=== PATIENT | female | born 1960 | race African-American/Black ===

== ENCOUNTER 2016-11-21 13:34 | Emergency (ER) | payer MEDICAID ==
[~2016-11-21] VITALS: Ht 154.9 cm; Wt 97.0 kg
[~2016-11-21 13:34] MED LIST: ALBU18HF2 IH; ALBU5SOL6 IH; AMLO2.5T45 PO; ASPI-1035 PO; BECL8.7A6 INH; BISA-81 PO; CARV6.2548 PO; DIPH25CA83 PO; DOCU-150 PO; FLUT1DIS3 IH; FURO-152 PO; INSU100V3 SQ; Ranolazine PO; TRAM50TA73 PO
[2016-11-21] MEDS ORDERED: PREDNISONE 20MG TABLET PO STA (14:20)
[2016-11-21] MEDS ORDERED: IPRATROPIUM BROMIDE (0.02%) 0.5MG/2.5ML NEB HHN STA (14:20)
[2016-11-21] MEDS ORDERED: ALBUTEROL (0.083%) 2.5MG/3ML NEB HHN STA (14:20)
[2016-11-21] MEDS ORDERED: MORPHINE SULFATE 4 MG/ML CPJ (NOT FOR IM USE) IV ONE (14:30)
[2016-11-21 14:48] LABS: BASOPHILS % 1.2 % (0.0-2.0); EOSINOPHILS % 1.7 % (0.0-5.0); HEMOGLOBIN. 11.3 g/dL (12.0-16.0); LYMPHOCYTES % 22.5 % (20.0-50.0); MEAN CORPUSCULAR HEMOGLOBIN 26.9 pg (28.0-32.0); MEAN CORPUSCULAR HGB CONC 32.3 g/dL (31.0-37.0); MEAN CORPUSCULAR VOLUME 83.4 fL (81.0-99.0); MEAN PLATELET VOLUME 7.3 fl (7.4-10.4); MONOCYTES % 7.9 % (2.0-8.0); NEUTROPHILS % 66.7 % (40.0-76.0); PLATELET 357 x1000/uL (130-400); RED CELL DISTRIBUTION WIDTH 15.7 % (11.6-14.6); WHITE BLOOD COUNT 9.2 x1000/uL (4.5-11.0)
[2016-11-21 15:03] LABS: ALANINE AMINOTRANSFERASE 20 IU/L (13-61); ALBUMIN 4.1 g/dL (3.4-5.0); ANION GAP 12; CALCIUM 8.8 mg/dL (8.5-10.1); CARBON DIOXIDE 30 mEq/L (21-32); CHLORIDE 106 mEq/L (98-107); INDEX HEMOLYSI 1 (1-3); INDEX ICTERIC 1 (1-4); INDEX LIPEMIC 1 (1-3); NT PRO B-TYPE NATRIURETIC PEP 78 pg/mL (5-125); TROPONIN I < 0.02 ng/mL (0.00-0.04); UREA NITROGEN BLOOD 16 mg/dL (7-21); eGFR > 60 mL/min (>60)
[2016-11-21 15:16] LABS: PROTHROMBIN TIME 10.8 sec
[2016-11-21 15:34] VITALS: BP 144/104
== END 2016-11-21 15:45 | disposition left against medical advice (07) ==
LOC: ER 15:24
DX: J45.901 Unspecified asthma with (acute) exacerbation (principal); R07.9 Chest pain, unspecified; J44.9 Chronic obstructive pulmonary disease, unspecified; E11.9 Type 2 diabetes mellitus without complications; I11.0 Hypertensive heart disease with heart failure; I50.9 Heart failure, unspecified; Z79.82 Long term (current) use of aspirin; Z79.4 Long term (current) use of insulin; Z79.899 Other long term (current) drug therapy; Z88.6 Allergy status to analgesic agent; Z88.8 Allergy status to other drugs, medicaments and biological substances
CPT/HCPCS: 36415; 71010; 80053; 82962; 83880; 84484; 85025; 85610; 85730; 93005; 94640; 96372; 99285; J2270; J7512; J7611; Z7610

== ENCOUNTER 2017-01-14 20:30 | Emergency (ER) | payer MEDICAID ==
[~2017-01-14] VITALS: Ht 170.2 cm; Wt 100.0 kg
[~2017-01-14 20:30] MED LIST changes: -ASPI-1035 PO; +ASPI-1159 PO
[2017-01-14 21:17] LABS: HEMATOCRIT. 31.7 % (36.0-48.0); HEMOGLOBIN. 10.4 g/dL (12.0-16.0); MEAN CORPUSCULAR HEMOGLOBIN 27.2 pg (28.0-32.0); MEAN PLATELET VOLUME 7.4 fl (7.4-10.4); PLATELET 308 x1000/uL (130-400); RED BLOOD CELL COUNT 3.82 mill/uL (4.2-5.4); RED CELL DISTRIBUTION WIDTH 15.3 % (11.6-14.6)
[2017-01-14 21:22] LABS: PROTHROMBIN TIME 10.9 sec
[2017-01-14 21:24] LABS: CARBON DIOXIDE 32 mEq/L (21-32); CHLORIDE 106 mEq/L (98-107)
[2017-01-14 21:30] LABS: TROPONIN I < 0.02 ng/mL (0.00-0.04)
[2017-01-14 21:40] LABS: PLATELET ESTIMATE NORMAL
[2017-01-14] MEDS ORDERED: ACETAMINOPHEN WITH CODEINE 300/30MG TABLET PO ONE (23:45)
[2017-01-15 01:59] VITALS: BP 112/66
== END 2017-01-15 02:03 | disposition home or self-care (01) ==
LOC: ER 20:40
DX: R07.2 Precordial pain (principal); R55 Syncope and collapse; J44.9 Chronic obstructive pulmonary disease, unspecified; I50.9 Heart failure, unspecified; I11.0 Hypertensive heart disease with heart failure; E11.9 Type 2 diabetes mellitus without complications; Z95.0 Presence of cardiac pacemaker; Z79.82 Long term (current) use of aspirin; Z79.4 Long term (current) use of insulin; Z88.6 Allergy status to analgesic agent; Z79.899 Other long term (current) drug therapy
CPT/HCPCS: 36415; 71010; 80053; 83880; 84484; 85025; 85610; 93005; 99285; Z7610

== ENCOUNTER 2017-04-13 21:47 | Inpatient (IN) | payer MEDICAID ==
[~2017-04-13] VITALS: Ht 162.6 cm; Wt 80.7 kg
[2017-04-13] MEDS ORDERED: NITROGLYCERIN OINT 1GM/INCH UDPKT TD ONE (22:30)
[2017-04-13] MEDS ORDERED: ASPIRIN 81MG TABLET PO ONE (22:30)
[2017-04-13] MEDS ORDERED: HYDROCODONE/ACETAMINOPHEN 10/325MG TABLET PO ONE (22:45)
[2017-04-13 23:11] LABS: BASOPHILS % 1.1 % (0.0-2.0); EOSINOPHILS % 3.5 % (0.0-5.0); HEMOGLOBIN. 10.5 g/dL (12.0-16.0); LYMPHOCYTES % 27.7 % (20.0-50.0); MEAN CORPUSCULAR HEMOGLOBIN 26.6 pg (28.0-32.0); MEAN CORPUSCULAR VOLUME 83.6 fL (81.0-99.0); MEAN PLATELET VOLUME 7.6 fl (7.4-10.4); NEUTROPHILS % 59.7 % (40.0-76.0); PLATELET 324 x1000/uL (130-400); RED BLOOD CELL COUNT 3.94 mill/uL (4.2-5.4); RED CELL DISTRIBUTION WIDTH 15.3 % (11.6-14.6)
[2017-04-13 23:25] LABS: D-DIMER 0.65 mg/L FEU (<0.50); INR 1.1; PROTHROMBIN TIME 11.2 sec (9.4-11.6)
[2017-04-13 23:29] LABS: CARBON DIOXIDE 32 mEq/L (21-32); CHLORIDE 104 mEq/L (98-107); ETHANOL BLOOD < 10 mg/dL; TROPONIN I < 0.02 ng/mL (0.00-0.04)
[2017-04-13] MEDS ORDERED: ONDANSETRON HCL 4MG/2ML VIAL IV PRN (23:45)
[2017-04-13] MEDS ORDERED: DOCUSATE SODIUM 100MG CAPSULE PO PRN (23:45)
[2017-04-13] MEDS ORDERED: NA PHOS,M-B/NA PHOS,DI-BA ENEMA 118ML PR PRN (23:45)
[2017-04-13] MEDS ORDERED: ACETAMINOPHEN 650MG/20.3ML UDC GT PRN (23:45)
[2017-04-13] MEDS ORDERED: MAGNESIUM/ALUMINUM HYDROXIDE/SIMETHICONE 30ML UDC PO PRN (23:45)
[2017-04-13] MEDS ORDERED: ACETAMINOPHEN 325MG TABLET PO PRN (23:45)
[2017-04-13] MEDS ORDERED: GUAIFENESIN 200MG/10ML SUGAR FREE UDC PO PRN (23:45)
[2017-04-13] MEDS ORDERED: HYDROCODONE/ACETAMINOPHEN 5/325MG TABLET PO PRN (23:45)
[2017-04-13] MEDS ORDERED: IPRATROPIUM/ALBUTEROL 0.5-3(2.5)MG/3ML NEB INH PRN (23:45)
[2017-04-13] MEDS ORDERED: ACETAMINOPHEN 650MG SUPP PR PRN (23:45)
[2017-04-13] MEDS ORDERED: CLONIDINE 0.1MG TABLET PO PRN (23:45)
[2017-04-14] MEDS ORDERED: MORPHINE SULFATE 2 MG/ML CPJ (NOT FOR IM USE) IV STA ×2 (00:19→04:31)
[2017-04-14] MEDS: DIPHENHYDRAMINE 50MG/ML VIAL IV PRN ×5 (02:38→20:24)
[2017-04-14 05:56] LABS: EOSINOPHILS % 4.1 % (0.0-5.0); HEMATOCRIT. 31.1 % (36.0-48.0); LYMPHOCYTES % 37.2 % (20.0-50.0); MEAN CORPUSCULAR HEMOGLOBIN 27.2 pg (28.0-32.0); MEAN CORPUSCULAR VOLUME 84.7 fL (81.0-99.0); MEAN PLATELET VOLUME 7.7 fl (7.4-10.4); MONOCYTES % 8.9 % (2.0-8.0); NEUTROPHILS % 48.8 % (40.0-76.0); PLATELET 307 x1000/uL (130-400); RED BLOOD CELL COUNT 3.68 mill/uL (4.2-5.4); RED CELL DISTRIBUTION WIDTH 15.6 % (11.6-14.6)
[2017-04-14 06:26] LABS: CARBON DIOXIDE 31 mEq/L (21-32); CHLORIDE 105 mEq/L (98-107); HDL CHOLESTEROL 46 mg/dL (40-59); TROPONIN I < 0.02 ng/mL (0.00-0.04)
[2017-04-14 06:37] LABS: CREATINE KINASE 75 IU/L (26-192); LDL CHOLESTEROL 80 mg/dL (5-100)
[2017-04-14 10:15] VITALS: BP 112/72
[2017-04-14] MEDS: HYDROMORPHONE HCL/PF 2MG/ML CPJ IV PRN ×3 (10:39→22:01)
[2017-04-14] MEDS: SODIUM CHLORIDE 0.9% INJ 3ML FLUSH IVF SCH ×2 (10:41→20:59)
[2017-04-14 10:58] LABS: CLARITY URINE CLEAR (CLEAR); COLOR URINE YELLOW (YELLOW); GLUCOSE URINE NEGATIVE (NEGATIVE); KETONES URINE NEGATIVE (NEGATIVE); LEUKOCYTE ESTERASE URINE NEGATIVE (NEGATIVE); NITRITE URINE NEGATIVE (NEGATIVE); OCCULT BLOOD URINE NEGATIVE (NEGATIVE); PH URINE 5.5 (4.5-8.0); PROTEIN URINE NEGATIVE (NEGATIVE); SPECIFIC GRAVITY URINE 1.036 (1.005-1.030); UROBILINOGEN URINE 0.2 E.U./dL (0.2-1.0)
[2017-04-14 11:26] LABS: *AMPHETAMINES SCREEN URINE NEGATIVE (NEGATIVE); *BARBITURATES SCREEN URINE NEGATIVE (NEGATIVE); *BENZODIAZEPINES SCREEN URINE NEGATIVE (NEGATIVE); *COCAINE SCREEN URINE NEGATIVE (NEGATIVE); CANNABINOID URINE SCREEN NEGATIVE (NEGATIVE); METHADONE URINE SCREEN NEGATIVE (NEGATIVE); OPIATES URINE SCREEN PRESUMTIVE POSITIVE (NEGATIVE); PHENCYCLIDINE URINE SCREEN NEGATIVE (NEGATIVE)
[2017-04-14 12:00] VITALS: BP 127/75
[2017-04-14 14:52] LABS: CREATINE KINASE 76 IU/L (26-192); TROPONIN I < 0.02 ng/mL (0.00-0.04)
[2017-04-14 17:30] VITALS: BP 121/86
[2017-04-14 20:00] VITALS: BP 125/78
[2017-04-14] MEDS ORDERED: DEXTROSE 50% WATER 50ML SYRINGE IV PRN (20:00)
[2017-04-14] MEDS: BLOOD SUGAR DIAGNOSTIC STRIP TEST SCH (20:20)
[2017-04-14] MEDS: INSULIN LISPRO 100 UNITS/ML SUBCUT SCH (20:20)
[2017-04-14] MEDS: GUAIFENESIN/CODEINE 100-10MG/5ML UDC PO PRN (20:57)
[2017-04-15] VITALS: BP 126/88
[2017-04-15] MEDS ORDERED: ZOLPIDEM TARTRATE 5MG TABLET PO PRN (00:15)
[2017-04-15 04:00] VITALS: BP 133/83
[2017-04-15] MEDS: SODIUM CHLORIDE 0.9% INJ 3ML FLUSH IVF SCH ×2 (05:09→08:11)
[2017-04-15] MEDS: HYDROMORPHONE HCL/PF 2MG/ML CPJ IV PRN ×2 (05:09→11:57)
[2017-04-15] MEDS: DIPHENHYDRAMINE 50MG/ML VIAL IV PRN ×2 (05:09→12:36)
[2017-04-15] MEDS: BLOOD SUGAR DIAGNOSTIC STRIP TEST SCH ×3 (07:24→17:25)
[2017-04-15] MEDS: INSULIN LISPRO 100 UNITS/ML SUBCUT SCH ×3 (07:24→17:25)
[2017-04-15 08:00] VITALS: BP 122/74
[2017-04-15] MEDS: GUAIFENESIN/CODEINE 100-10MG/5ML UDC PO PRN (08:11)
[2017-04-15 12:00] VITALS: BP 133/83
[2017-04-15 13:51] VITALS: BP 133/83
[2017-04-15 16:00] VITALS: BP 100/65
== END 2017-04-15 17:45 | disposition home or self-care (01) | DRG 201 ==
LOC: ER 21:59 → 7WST 23:06 → ENRESERV 04-14 09:19
PROVIDERS: ADMIT Family Medicine; ATTEND Family Medicine
PROC: 4B02XTZ Measurement of Cardiac Defibrillator, External Approach (ICD-10-PCS; principal; 2017-04-13)
DX: I47.2 Ventricular tachycardia (principal); I50.43 Acute on chronic combined systolic (congestive) and diastolic (congestive) heart failure; D64.9 Anemia, unspecified; E11.9 Type 2 diabetes mellitus without complications; F32.9 Major depressive disorder, single episode, unspecified; J44.9 Chronic obstructive pulmonary disease, unspecified; I11.0 Hypertensive heart disease with heart failure; E78.5 Hyperlipidemia, unspecified; I45.81 Long QT syndrome; E78.00 Pure hypercholesterolemia, unspecified; F41.9 Anxiety disorder, unspecified; J32.9 Chronic sinusitis, unspecified; K59.00 Constipation, unspecified; M19.90 Unspecified osteoarthritis, unspecified site; Z79.4 Long term (current) use of insulin; Z82.49 Family history of ischemic heart disease and other diseases of the circulatory system; Z87.891 Personal history of nicotine dependence; Z95.810 Presence of automatic (implantable) cardiac defibrillator; Z88.8 Allergy status to other drugs, medicaments and biological substances
CPT/HCPCS: 36415; 71010; 80053; 80061; 80305; 81003; 82550; 82962; 83690; 83735; 83880; 84484; 85025; 85379; 85610; 85730; 93005; 96374; 96375; 96376; 99285; C1893; G0482; J1170; J1200; J2270

== ENCOUNTER 2017-05-07 13:37 | Inpatient (IN) | payer MEDICAID ==
[~2017-05-07] VITALS: Ht 154.9 cm; Wt 95.3 kg
[2017-05-07] MEDS ORDERED: ASPIRIN 81MG TABLET PO ONE (14:00)
[2017-05-07] MEDS ORDERED: IOHEXOL-350 100 ML BOTTLE ONE (14:21)
[2017-05-07] MEDS ORDERED: SODIUM CHLORIDE 0.9% 10ML VIAL ONE (14:21)
[2017-05-07 14:22] LABS: BASOPHILS % 1.3 % (0.0-2.0); EOSINOPHILS % 2.6 % (0.0-5.0); HEMATOCRIT. 32.4 % (36.0-48.0); HEMOGLOBIN. 10.6 g/dL (12.0-16.0); LYMPHOCYTES % 22.1 % (20.0-50.0); MEAN CORPUSCULAR VOLUME 82.5 fL (81.0-99.0); MEAN PLATELET VOLUME 7.4 fl (7.4-10.4); MONOCYTES % 6.9 % (2.0-8.0); NEUTROPHILS % 67.1 % (40.0-76.0); PLATELET 356 x1000/uL (130-400); RED BLOOD CELL COUNT 3.93 mill/uL (4.2-5.4)
[2017-05-07 14:27] LABS: INR 1.1; PROTHROMBIN TIME 11.6 sec (9.4-11.6)
[2017-05-07 14:37] LABS: CARBON DIOXIDE 28 mEq/L (21-32); CHLORIDE 108 mEq/L (98-107); TROPONIN I < 0.02 ng/mL (0.00-0.04)
[2017-05-07] MEDS ORDERED: IPRATROPIUM BROMIDE (0.02%) 0.5MG/2.5ML NEB HHN STA (15:28)
[2017-05-07] MEDS ORDERED: ALBUTEROL (0.083%) 2.5MG/3ML NEB HHN STA (15:28)
[2017-05-07] MEDS ORDERED: KETOROLAC 15MG/ML VIAL IV ONE (17:00)
[2017-05-07 20:00] VITALS: BP 136/95
[2017-05-07 20:10] VITALS: BP 136/95
[2017-05-07] MEDS ORDERED: AMLO5TAB88 PO (21:08)
[2017-05-07] MEDS ORDERED: B50 PO (21:08)
[2017-05-07] MEDS ORDERED: ATOR-2 PO (21:12)
[2017-05-07] MEDS ORDERED: METF500T4 PO (21:12)
[2017-05-07] MEDS ORDERED: NITR0.4T49 PO (21:12)
[2017-05-07] MEDS ORDERED: IPRATROPIUM/ALBUTEROL 0.5-3(2.5)MG/3ML NEB INH PRN (23:00)
[2017-05-07] MEDS ORDERED: CLONIDINE 0.1MG TABLET PO PRN (23:00)
[2017-05-07] MEDS ORDERED: GUAIFENESIN 200MG/10ML SUGAR FREE UDC PO PRN (23:00)
[2017-05-07] MEDS ORDERED: DEXTROSE 50% WATER 50ML SYRINGE IV PRN (23:00)
[2017-05-07] MEDS ORDERED: ACETAMINOPHEN 325MG TABLET PO PRN (23:00)
[2017-05-07] MEDS ORDERED: MAGNESIUM/ALUMINUM HYDROXIDE/SIMETHICONE 30ML UDC PO PRN (23:00)
[2017-05-08] VITALS: BP 117/78
[2017-05-08] MEDS: IPRATROPIUM/ALBUTEROL 0.5-3(2.5)MG/3ML NEB HHN SCH ×6 (04:00→20:40)
[2017-05-08] MEDS: MORPHINE SULFATE 4 MG/ML CPJ (NOT FOR IM USE) IV PRN ×3 (05:38→17:32)
[2017-05-08] MEDS: BLOOD SUGAR DIAGNOSTIC STRIP TEST SCH ×4 (05:38→20:58)
[2017-05-08] MEDS: SODIUM CHLORIDE 0.9% INJ 3ML FLUSH IVF SCH ×3 (05:38→21:01)
[2017-05-08] MEDS: INSULIN LISPRO 100 UNITS/ML SUBCUT SCH ×4 (07:17→21:00)
[2017-05-08 08:00] VITALS: BP 136/82
[2017-05-08] MEDS: ASPIRIN 81MG EC TABLET PO SCH (08:25)
[2017-05-08] MEDS: METFORMIN HCL 500MG TABLET PO SCH ×2 (08:25→17:31)
[2017-05-08] MEDS: FUROSEMIDE 20MG TABLET PO SCH ×2 (08:25→17:31)
[2017-05-08] MEDS: CARVEDILOL 6.25 MG TABLET PO SCH ×2 (08:28→21:01)
[2017-05-08] MEDS: AMLODIPINE 5MG TABLET PO SCH (08:29)
[2017-05-08] MEDS: ONDANSETRON HCL 4MG/2ML VIAL IV PRN (08:35)
[2017-05-08 12:00] VITALS: BP 129/83
[2017-05-08] MEDS: DIPHENHYDRAMINE 50MG/ML VIAL IV PRN (15:56)
[2017-05-08 16:00] VITALS: BP 115/77
[2017-05-08 20:00] VITALS: BP 131/86
[2017-05-08] MEDS ORDERED: GUAIFENESIN-DM 200MG-20MG/10ML UDC PO PRN (22:30)
[2017-05-09] VITALS: BP 131/86
[2017-05-09] MEDS: MORPHINE SULFATE 4 MG/ML CPJ (NOT FOR IM USE) IV PRN ×4 (00:33→21:17)
[2017-05-09] MEDS: DIPHENHYDRAMINE 50MG/ML VIAL IV PRN ×3 (01:55→21:14)
[2017-05-09 04:00] VITALS: BP_SYST 108; BP_SYST 112; BP_SYST 134; BP_DIAS 72; BP_DIAS 75; BP_DIAS 86
[2017-05-09] MEDS: IPRATROPIUM/ALBUTEROL 0.5-3(2.5)MG/3ML NEB HHN SCH ×5 (04:00→20:35)
[2017-05-09] MEDS: SODIUM CHLORIDE 0.9% INJ 3ML FLUSH IVF SCH ×3 (06:05→21:15)
[2017-05-09] MEDS: BLOOD SUGAR DIAGNOSTIC STRIP TEST SCH ×4 (06:06→21:14)
[2017-05-09 08:00] VITALS: BP_SYST 103; BP_SYST 123; BP_SYST 92; BP_DIAS 74; BP_DIAS 79; BP_DIAS 84
[2017-05-09] MEDS: INSULIN LISPRO 100 UNITS/ML SUBCUT SCH ×4 (08:10→21:00)
[2017-05-09] MEDS: METFORMIN HCL 500MG TABLET PO SCH ×2 (08:10→17:31)
[2017-05-09] MEDS: CARVEDILOL 6.25 MG TABLET PO SCH ×2 (08:31→21:14)
[2017-05-09] MEDS: AMLODIPINE 5MG TABLET PO SCH (08:32)
[2017-05-09] MEDS: FUROSEMIDE 20MG TABLET PO SCH ×2 (08:32→17:00)
[2017-05-09] MEDS: ASPIRIN 81MG EC TABLET PO SCH (08:49)
[2017-05-09 12:00] VITALS: BP 126/84
[2017-05-09 16:00] VITALS: BP 138/91
[2017-05-09 20:00] VITALS: BP_SYST 134; BP_SYST 143; BP_DIAS 77; BP_DIAS 88
[2017-05-09] MEDS: ONDANSETRON HCL 4MG/2ML VIAL IV PRN (21:14)
[2017-05-10] VITALS (7 sets, daily range): BP systolic 110–148; BP diastolic 80–98
[2017-05-10] MEDS: IPRATROPIUM/ALBUTEROL 0.5-3(2.5)MG/3ML NEB HHN SCH ×6 (00:29→21:35)
[2017-05-10] MEDS ORDERED: METHYLPREDNISOLONE SOD SUCC 125 MG/2 ML VIAL IV NR (01:30)
[2017-05-10] MEDS: DIPHENHYDRAMINE 50MG/ML VIAL IV PRN ×4 (02:57→21:30)
[2017-05-10] MEDS: MORPHINE SULFATE 4 MG/ML CPJ (NOT FOR IM USE) IV PRN ×4 (03:01→21:40)
[2017-05-10] MEDS ORDERED: IPRATROPIUM/ALBUTEROL 0.5-3(2.5)MG/3ML NEB HHN SCH (04:00)
[2017-05-10] MEDS: BLOOD SUGAR DIAGNOSTIC STRIP TEST SCH ×4 (05:56→21:39)
[2017-05-10] MEDS: INSULIN LISPRO 100 UNITS/ML SUBCUT SCH ×4 (05:56→21:00)
[2017-05-10] MEDS: SODIUM CHLORIDE 0.9% INJ 3ML FLUSH IVF SCH ×3 (05:56→21:39)
[2017-05-10 08:00] LABS: BASOPHILS % 0.3 % (0.0-2.0); EOSINOPHILS % 1.3 % (0.0-5.0); HEMATOCRIT. 32.3 % (36.0-48.0); HEMOGLOBIN. 10.5 g/dL (12.0-16.0); LYMPHOCYTES % 12.9 % (20.0-50.0); MEAN PLATELET VOLUME 7.7 fl (7.4-10.4); MONOCYTES % 1.8 % (2.0-8.0); NEUTROPHILS % 83.7 % (40.0-76.0); PLATELET 344 x1000/uL (130-400); RED BLOOD CELL COUNT 3.89 mill/uL (4.2-5.4); RED CELL DISTRIBUTION WIDTH 15.5 % (11.6-14.6)
[2017-05-10] MEDS: CARVEDILOL 6.25 MG TABLET PO SCH ×2 (08:23→21:31)
[2017-05-10] MEDS: FUROSEMIDE 20MG TABLET PO SCH ×2 (08:23→17:00)
[2017-05-10] MEDS: ASPIRIN 81MG EC TABLET PO SCH (08:23)
[2017-05-10] MEDS: AMLODIPINE 5MG TABLET PO SCH (08:23)
[2017-05-10] MEDS: AZITHROMYCIN 500 MG TABLET PO SCH (08:23)
[2017-05-10 08:36] LABS: CARBON DIOXIDE 27 mEq/L (21-32); CHLORIDE 104 mEq/L (98-107)
[2017-05-10] MEDS ORDERED: AZITHROMYCIN 500 MG TABLET PO SCH (09:00)
[2017-05-10] MEDS: METHYLPREDNISOLONE SOD SUCC 125 MG/2 ML VIAL IV SCH ×2 (10:33→18:00)
[2017-05-10] MEDS: GUAIFENESIN 600MG ER TABLET PO SCH ×2 (10:33→21:30)
[2017-05-10] MEDS: ONDANSETRON HCL 4MG/2ML VIAL IV PRN ×2 (14:21→21:28)
[2017-05-11 00:23] VITALS: BP 130/95
[2017-05-11] MEDS: DIPHENHYDRAMINE 50MG/ML VIAL IV PRN ×5 (01:19→23:01)
[2017-05-11] MEDS: IPRATROPIUM/ALBUTEROL 0.5-3(2.5)MG/3ML NEB HHN SCH ×6 (01:20→20:35)
[2017-05-11] MEDS: METHYLPREDNISOLONE SOD SUCC 125 MG/2 ML VIAL IV SCH ×3 (01:22→17:27)
[2017-05-11] MEDS: MORPHINE SULFATE 4 MG/ML CPJ (NOT FOR IM USE) IV PRN ×3 (03:54→23:02)
[2017-05-11 04:00] VITALS: BP 131/89
[2017-05-11] MEDS: BLOOD SUGAR DIAGNOSTIC STRIP TEST SCH ×4 (06:19→21:00)
[2017-05-11] MEDS: SODIUM CHLORIDE 0.9% INJ 3ML FLUSH IVF SCH ×3 (06:36→22:00)
[2017-05-11 08:00] VITALS: BP_SYST 112; BP_SYST 119; BP_SYST 120; BP_DIAS 76; BP_DIAS 85; BP_DIAS 89
[2017-05-11] MEDS: INSULIN LISPRO 100 UNITS/ML SUBCUT SCH ×4 (08:10→21:00)
[2017-05-11] MEDS: FUROSEMIDE 20MG TABLET PO SCH ×2 (08:49→17:00)
[2017-05-11] MEDS: CARVEDILOL 6.25 MG TABLET PO SCH ×2 (08:59→22:02)
[2017-05-11] MEDS: AZITHROMYCIN 500 MG TABLET PO SCH (09:00)
[2017-05-11] MEDS: AMLODIPINE 5MG TABLET PO SCH (09:00)
[2017-05-11] MEDS: ASPIRIN 81MG EC TABLET PO SCH (09:00)
[2017-05-11] MEDS: GUAIFENESIN 600MG ER TABLET PO SCH ×2 (09:01→22:01)
[2017-05-11 12:00] VITALS: BP 122/87
[2017-05-11 15:55] VITALS: BP 112/85
[2017-05-11 20:00] VITALS: BP_SYST 110; BP_SYST 126; BP_DIAS 72; BP_DIAS 84
[2017-05-12] MEDS: METHYLPREDNISOLONE SOD SUCC 125 MG/2 ML VIAL IV SCH ×3 (02:00→18:00)
[2017-05-12] MEDS: IPRATROPIUM/ALBUTEROL 0.5-3(2.5)MG/3ML NEB HHN SCH ×5 (02:13→20:00)
[2017-05-12] MEDS: MORPHINE SULFATE 4 MG/ML CPJ (NOT FOR IM USE) IV PRN ×4 (04:16→18:59)
[2017-05-12] MEDS: DIPHENHYDRAMINE 50MG/ML VIAL IV PRN ×4 (05:46→21:18)
[2017-05-12] MEDS: SODIUM CHLORIDE 0.9% INJ 3ML FLUSH IVF SCH ×3 (06:00→21:17)
[2017-05-12] MEDS: BLOOD SUGAR DIAGNOSTIC STRIP TEST SCH ×4 (07:40→20:12)
[2017-05-12] MEDS: INSULIN LISPRO 100 UNITS/ML SUBCUT SCH ×4 (08:10→21:00)
[2017-05-12] MEDS: AZITHROMYCIN 500 MG TABLET PO SCH (09:00)
[2017-05-12] MEDS: FUROSEMIDE 20MG TABLET PO SCH ×3 (10:17→17:05)
[2017-05-12] MEDS: CARVEDILOL 6.25 MG TABLET PO SCH ×2 (10:17→20:12)
[2017-05-12] MEDS: GUAIFENESIN 600MG ER TABLET PO SCH ×2 (10:18→20:12)
[2017-05-12] MEDS: AMLODIPINE 5MG TABLET PO SCH (10:18)
[2017-05-12] MEDS: ASPIRIN 81MG EC TABLET PO SCH (10:19)
[2017-05-12 16:00] VITALS: BP 125/83
[2017-05-12 20:00] VITALS: BP 130/88
[2017-05-13 00:01] VITALS: BP 123/83
[2017-05-13] MEDS: IPRATROPIUM/ALBUTEROL 0.5-3(2.5)MG/3ML NEB HHN SCH ×6 (00:15→21:30)
[2017-05-13] MEDS: ONDANSETRON HCL 4MG/2ML VIAL IV PRN (00:44)
[2017-05-13] MEDS: MORPHINE SULFATE 4 MG/ML CPJ (NOT FOR IM USE) IV PRN (00:45)
[2017-05-13] MEDS: METHYLPREDNISOLONE SOD SUCC 125 MG/2 ML VIAL IV SCH ×2 (02:00→09:55)
[2017-05-13] MEDS: DIPHENHYDRAMINE 50MG/ML VIAL IV PRN ×4 (03:08→23:40)
[2017-05-13 04:00] VITALS: BP 123/85
[2017-05-13] MEDS: SODIUM CHLORIDE 0.9% INJ 3ML FLUSH IVF SCH ×3 (05:28→22:29)
[2017-05-13] MEDS: BLOOD SUGAR DIAGNOSTIC STRIP TEST SCH ×3 (06:49→21:00)
[2017-05-13 07:31] LABS: BASOPHILS % 0.5 % (0.0-2.0); EOSINOPHILS % 5.8 % (0.0-5.0); HEMOGLOBIN. 10.1 g/dL (12.0-16.0); LYMPHOCYTES % 31.5 % (20.0-50.0); MEAN CORPUSCULAR VOLUME 83.2 fL (81.0-99.0); MEAN PLATELET VOLUME 7.5 fl (7.4-10.4); MONOCYTES % 7.4 % (2.0-8.0); NEUTROPHILS % 54.8 % (40.0-76.0); PLATELET 352 x1000/uL (130-400); RED BLOOD CELL COUNT 3.73 mill/uL (4.2-5.4); RED CELL DISTRIBUTION WIDTH 15.6 % (11.6-14.6)
[2017-05-13 07:58] VITALS: BP 112/77
[2017-05-13] MEDS: INSULIN LISPRO 100 UNITS/ML SUBCUT SCH ×2 (08:10→21:00)
[2017-05-13 08:34] LABS: CARBON DIOXIDE 28 mEq/L (21-32); CHLORIDE 103 mEq/L (98-107)
[2017-05-13] MEDS: AMLODIPINE 5MG TABLET PO SCH (09:00)
[2017-05-13] MEDS: GUAIFENESIN 600MG ER TABLET PO SCH ×2 (09:00→22:29)
[2017-05-13] MEDS: FUROSEMIDE 20MG TABLET PO SCH ×2 (09:53→15:45)
[2017-05-13] MEDS: ASPIRIN 81MG EC TABLET PO SCH (09:53)
[2017-05-13] MEDS: CARVEDILOL 6.25 MG TABLET PO SCH ×2 (09:54→22:29)
[2017-05-13] MEDS: AZITHROMYCIN 500 MG TABLET PO SCH (09:55)
[2017-05-13 11:49] VITALS: BP 121/82
[2017-05-13 15:45] VITALS: BP 112/74
[2017-05-13 20:00] VITALS: BP_SYST 114; BP_SYST 124; BP_DIAS 76; BP_DIAS 82; BP_DIAS 83
[2017-05-14] VITALS: BP 123/73
[2017-05-14] MEDS: METHYLPREDNISOLONE SOD SUCC 125 MG/2 ML VIAL IV SCH ×3 (01:36→16:57)
[2017-05-14 04:00] VITALS: BP 105/70
[2017-05-14] MEDS: SODIUM CHLORIDE 0.9% INJ 3ML FLUSH IVF SCH ×3 (06:14→21:17)
[2017-05-14] MEDS: INSULIN LISPRO 100 UNITS/ML SUBCUT SCH ×4 (06:19→20:55)
[2017-05-14] MEDS: BLOOD SUGAR DIAGNOSTIC STRIP TEST SCH ×4 (06:19→20:55)
[2017-05-14 08:00] VITALS: BP 117/76
[2017-05-14] MEDS: DIPHENHYDRAMINE 50MG/ML VIAL IV PRN ×4 (08:01→21:18)
[2017-05-14] MEDS: AZITHROMYCIN 500 MG TABLET PO SCH (08:01)
[2017-05-14] MEDS: CARVEDILOL 6.25 MG TABLET PO SCH ×2 (08:07→20:28)
[2017-05-14] MEDS: ASPIRIN 81MG EC TABLET PO SCH (08:08)
[2017-05-14] MEDS: GUAIFENESIN 600MG ER TABLET PO SCH ×2 (08:08→20:28)
[2017-05-14] MEDS: AMLODIPINE 5MG TABLET PO SCH (08:10)
[2017-05-14] MEDS: FUROSEMIDE 20MG TABLET PO SCH ×2 (09:00→17:10)
[2017-05-14] MEDS: BUDESONIDE 0.5MG/2ML NEB HHN SCH ×2 (09:35→20:20)
[2017-05-14] MEDS: IPRATROPIUM/ALBUTEROL 0.5-3(2.5)MG/3ML NEB HHN SCH ×3 (09:35→16:00)
[2017-05-14 12:00] VITALS: BP 115/75
[2017-05-14 16:00] VITALS: BP 117/80
[2017-05-14] MEDS: ONDANSETRON HCL 4MG/2ML VIAL IV PRN (17:06)
[2017-05-14] MEDS ORDERED: MORPHINE SULFATE 2 MG/ML CPJ (NOT FOR IM USE) IV PRN (19:15)
[2017-05-14 20:00] VITALS: BP_SYST 117; BP_DIAS 71; BP_DIAS 76
[2017-05-14] MEDS: MORPHINE SULFATE 2 MG/ML CPJ (NOT FOR IM USE) IV PRN (20:29)
[2017-05-15] VITALS (7 sets, daily range): BP systolic 99–118; BP diastolic 68–84
[2017-05-15] MEDS: IPRATROPIUM/ALBUTEROL 0.5-3(2.5)MG/3ML NEB HHN SCH ×2 (00:25→04:00)
[2017-05-15] MEDS: MORPHINE SULFATE 2 MG/ML CPJ (NOT FOR IM USE) IV PRN ×3 (00:36→12:00)
[2017-05-15] MEDS: DIPHENHYDRAMINE 50MG/ML VIAL IV PRN ×4 (01:51→15:26)
[2017-05-15] MEDS: METHYLPREDNISOLONE SOD SUCC 125 MG/2 ML VIAL IV SCH ×2 (02:00→11:10)
[2017-05-15] MEDS: SODIUM CHLORIDE 0.9% INJ 3ML FLUSH IVF SCH ×2 (06:25→15:27)
[2017-05-15] MEDS: BLOOD SUGAR DIAGNOSTIC STRIP TEST SCH ×2 (07:12→12:00)
[2017-05-15] MEDS: INSULIN LISPRO 100 UNITS/ML SUBCUT SCH ×2 (08:10→13:10)
[2017-05-15] MEDS: ASPIRIN 81MG EC TABLET PO SCH (11:06)
[2017-05-15] MEDS: AZITHROMYCIN 500 MG TABLET PO SCH (11:06)
[2017-05-15] MEDS: AMLODIPINE 5MG TABLET PO SCH (11:08)
[2017-05-15] MEDS: FUROSEMIDE 20MG TABLET PO SCH (11:09)
[2017-05-15] MEDS: CARVEDILOL 6.25 MG TABLET PO SCH (11:09)
[2017-05-15] MEDS: GUAIFENESIN 600MG ER TABLET PO SCH (11:10)
== END 2017-05-15 18:00 | disposition home or self-care (01) | DRG 133 ==
LOC: ER 14:12 → 7WST 18:43 → EDBEDREQ 18:45 → EDBEDREQTM 18:45 → ENRESERV 19:05 → ER 20:08 → CANBEDREQ 05-08 16:02
PROVIDERS: ADMIT Internal Medicine; ATTEND Internal Medicine
DX: J96.00 Acute respiratory failure, unspecified whether with hypoxia or hypercapnia (principal); I50.43 Acute on chronic combined systolic (congestive) and diastolic (congestive) heart failure; J44.1 Chronic obstructive pulmonary disease with (acute) exacerbation; I42.9 Cardiomyopathy, unspecified; D64.9 Anemia, unspecified; E11.9 Type 2 diabetes mellitus without complications; F32.9 Major depressive disorder, single episode, unspecified; E78.5 Hyperlipidemia, unspecified; I11.0 Hypertensive heart disease with heart failure; K59.00 Constipation, unspecified; J32.9 Chronic sinusitis, unspecified; E78.00 Pure hypercholesterolemia, unspecified; F41.9 Anxiety disorder, unspecified; I45.81 Long QT syndrome; K64.9 Unspecified hemorrhoids; M19.90 Unspecified osteoarthritis, unspecified site; W18.30XA Fall on same level, unspecified, initial encounter; Y93.89 Activity, other specified; Y92.89 Other specified places as the place of occurrence of the external cause; Y99.8 Other external cause status; Z79.4 Long term (current) use of insulin; Z95.810 Presence of automatic (implantable) cardiac defibrillator; Z79.82 Long term (current) use of aspirin; Z79.899 Other long term (current) drug therapy; Z82.49 Family history of ischemic heart disease and other diseases of the circulatory system; Z83.3 Family history of diabetes mellitus; Z87.891 Personal history of nicotine dependence; Z88.8 Allergy status to other drugs, medicaments and biological substances; Z90.710 Acquired absence of both cervix and uterus
CPT/HCPCS: 36415; 71010; 71275; 80048; 80053; 82962; 83036; 83735; 83880; 84484; 85025; 85379; 85610; 93005; 94640; 94664; 96374; 97162; 99285; A4216; J1200; J1815; J1885; J2270; J2405; J2930; J7611; J7620; J7626; Q9967

== ENCOUNTER 2017-07-04 18:51 | Emergency (ER) | payer MEDICAID ==
[~2017-07-04] VITALS: Ht 154.9 cm; Wt 95.0 kg
[~2017-07-04 18:51] MED LIST changes: -AMLO2.5T45 PO; +AMLO5TAB88 PO; +ATOR-2 PO; +B50 PO; -DIPH25CA83 PO; +METF500T4 PO; +NITR0.4T49 PO; -TRAM50TA73 PO; +TRAM50TA94 PO
[2017-07-04] MEDS ORDERED: ONDANSETRON HCL 4MG/2ML VIAL IV ONE (19:30)
[2017-07-04] MEDS ORDERED: MORPHINE SULFATE 4 MG/ML CPJ (NOT FOR IM USE) IV ONE (19:30)
[2017-07-04] MEDS ORDERED: MORPHINE SULFATE 10 MG/ML CPJ IV ONE (19:45)
[2017-07-04 19:51] LABS: BASOPHILS % 1.3 % (0.0-2.0); EOSINOPHILS % 2.1 % (0.0-5.0); HEMATOCRIT. 33.8 % (36.0-48.0); HEMOGLOBIN. 10.8 g/dL (12.0-16.0); LYMPHOCYTES % 24.4 % (20.0-50.0); MEAN CORPUSCULAR HEMOGLOBIN 26.7 pg (28.0-32.0); MEAN CORPUSCULAR VOLUME 83.2 fL (81.0-99.0); MEAN PLATELET VOLUME 7.4 fl (7.4-10.4); NEUTROPHILS % 66.2 % (40.0-76.0); PLATELET 350 x1000/uL (130-400); RED BLOOD CELL COUNT 4.06 mill/uL (4.2-5.4); RED CELL DISTRIBUTION WIDTH 15.8 % (11.6-14.6)
[2017-07-04 20:05] LABS: CARBON DIOXIDE 30 mEq/L (21-32); CHLORIDE 106 mEq/L (98-107)
[2017-07-04 20:07] LABS: TROPONIN I < 0.02 ng/mL (0.00-0.04)
[2017-07-04] MEDS ORDERED: HYDROCODONE/ACETAMINOPHEN 5/325MG TABLET PO ONE (23:30)
[2017-07-04 23:48] VITALS: BP 124/76
== END 2017-07-04 23:51 | disposition home or self-care (01) ==
LOC: ER 20:09
DX: R07.9 Chest pain, unspecified (principal); R53.1 Weakness; I11.0 Hypertensive heart disease with heart failure; I50.9 Heart failure, unspecified; J44.9 Chronic obstructive pulmonary disease, unspecified; R05 Cough; E11.9 Type 2 diabetes mellitus without complications; Z79.82 Long term (current) use of aspirin; Z95.0 Presence of cardiac pacemaker; Z88.6 Allergy status to analgesic agent; Z88.8 Allergy status to other drugs, medicaments and biological substances
CPT/HCPCS: 36415; 71010; 80048; 83880; 84484; 85025; 85379; 93005; 96374; 96375; 99285; J2270; J2405

== ENCOUNTER 2017-08-08 17:22 | Emergency (ER) | payer MEDICAID ==
[~2017-08-08] VITALS: Ht 154.9 cm; Wt 95.0 kg
[2017-08-08 17:39] VITALS: BP 146/94
== END 2017-08-09 00:30 | disposition left against medical advice (07) ==
LOC: ER 18:28
DX: R07.89 Other chest pain (principal); Z53.21 Procedure and treatment not carried out due to patient leaving prior to being seen by health care provider
CPT/HCPCS: 93005

== ENCOUNTER 2018-09-10 19:20 | Emergency (ER) | payer MEDICAID ==
[~2018-09-10] VITALS: Ht 172.7 cm; Wt 125.0 kg
[~2018-09-10 19:20] MED LIST changes: -ALBU5SOL6 IH; +METF-414 PO; -METF500T4 PO
[2018-09-10] MEDS ORDERED: ASPIRIN 81MG TABLET PO ONE (22:15)
[2018-09-10] MEDS ORDERED: FENTANYL CITRATE/PF 50MCG/ML 2ML VIAL IV ONE (23:15)
[2018-09-10] MEDS ORDERED: ALBUTEROL (0.083%) 2.5MG/3ML NEB HHN STA (23:52)
[2018-09-10] MEDS ORDERED: IPRATROPIUM BROMIDE (0.02%) 0.5MG/2.5ML NEB HHN STA (23:52)
[2018-09-11 00:38] LABS: BASOPHILS % 0.8 % (0.0-2.0); EOSINOPHILS % 4.4 % (0.0-5.0); HEMATOCRIT. 33.7 % (36.0-48.0); HEMOGLOBIN. 10.7 g/dL (12.0-16.0); LYMPHOCYTES % 24.8 % (20.0-50.0); MEAN CORPUSCULAR VOLUME 82.4 fL (81.0-99.0); MEAN PLATELET VOLUME 7.5 fl (7.4-10.4); MONOCYTES % 8.7 % (2.0-8.0); NEUTROPHILS % 61.3 % (40.0-76.0); PLATELET 411 x1000/uL (130-400); RED BLOOD CELL COUNT 4.09 mill/uL (4.2-5.4); RED CELL DISTRIBUTION WIDTH 16.5 % (11.6-14.6)
[2018-09-11 00:53] LABS: CHLORIDE 107 mEq/L (98-107)
[2018-09-11 02:00] VITALS: BP 141/103
== END 2018-09-11 02:25 | disposition home or self-care (01) ==
LOC: ER 19:20
DX: J44.1 Chronic obstructive pulmonary disease with (acute) exacerbation (principal); M79.10 Myalgia, unspecified site; R07.89 Other chest pain; I11.0 Hypertensive heart disease with heart failure; I50.9 Heart failure, unspecified; Z86.73 Personal history of transient ischemic attack (TIA), and cerebral infarction without residual deficits; Z76.5 Malingerer [conscious simulation]; Z88.2 Allergy status to sulfonamides; Z88.8 Allergy status to other drugs, medicaments and biological substances; Z79.899 Other long term (current) drug therapy; Z88.6 Allergy status to analgesic agent
CPT/HCPCS: 36415; 70450; 71045; 80053; 83880; 84484; 85025; 93005; 94640; 96374; 99284; J3010; J7611; Z7610